=== PATIENT | female | born 1935 | race Caucasian/White ===

== ENCOUNTER → 2016-08-13 | Outpatient (CLI) | payer MEDICARE, OTHER ==
--- NOTE | 2016-08-14 10:31 | RAD ---
EXAM DESCRIPTION: Knee,Right Complete CLINICAL HISTORY: 81 years, Female, KNEE PAIN COMPARISON: None TECHNIQUE: Four views of the right knee FINDINGS: Moderate joint space narrowing medially with mild subchondral sclerosis and very little osteophyte formation is present. Milder degenerative changes laterally and in the patellofemoral compartment with moderately extensive vascular calcification is noted. Slight thickening of the suprapatellar bursa or a small effusion is suspected. IMPRESSION: 1. Moderate degenerative changes medial joint compartment with joint space narrowing and sclerosis. Electronically signed by: Prabhakar Laguna MD 08/14/2016 10:30 AM CDT
--- NOTE | 2016-08-14 10:36 | RAD ---
EXAM DESCRIPTION: Pelvis CLINICAL HISTORY: 81 years Female, HIP PAIN COMPARISON: None. FINDINGS: The bony hips and pelvis are mildly osteopenic with moderate sclerosis of the symphysis pubis consistent with osteitis pubis and modest degenerative changes involving each hip. Moderate vascular calcification is present. No soft tissue masses are evident. Moderate degenerative changes in the lower lumbar spine are noted. IMPRESSION: Osteopenia and modest degenerative changes with sclerosis of the symphysis pubis , typical of osteitis pubis Electronically signed by: Prabhakar Laguna MD 08/14/2016 10:35 AM CDT
== END ==
LOC: RAD 07:47
PROVIDERS: ATTEND Orthopaedic Surgery
DX: M25.561 Pain in right knee (principal); M25.551 Pain in right hip; M85.88 Other specified disorders of bone density and structure, other site; M12.861 Other specific arthropathies, not elsewhere classified, right knee

== ENCOUNTER → 2016-08-17 | Outpatient (CLI) | payer MEDICARE, OTHER ==
--- NOTE | 2016-08-17 14:33 | MRI ---
MRI right tib-fib without contrast INDICATION: Leg pain muscle injury no specified date of onset initial encounter TECHNIQUE: Noncontrast MR imaging right tib-fib FINDINGS: There is a prominent Baird's cyst dissecting from the knee into the calf with peripheral T1 hyperintensity indicating that hemoglobin/blood products. There is a large effusion within the knee. There is diffuse superficial edema as well. There is also a strain/low-grade partial tear of the medial head gastrocnemius. The Baird's cyst measures about 8 cm long axis. There is subchondral edema in the medial tibiofemoral compartment with joint space narrowing suggesting chondrosis and developing osteoarthrosis and possible degenerative medial meniscal tear. Dedicated MRI of the knee may be considered as well. Multiple venous varicosities and adjacent superficial edema without evidence of deep venous thrombosis. 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
== END ==
LOC: MRI 10:53
PROVIDERS: ATTEND Orthopaedic Surgery
DX: M62.1 Other rupture of muscle (nontraumatic) (principal); M71.21 Synovial cyst of popliteal space [Baker], right knee

== ENCOUNTER → 2016-10-22 | Outpatient (CLI) | payer MEDICARE, OTHER ==
--- NOTE | 2016-10-23 09:21 | RAD ---
EXAM DESCRIPTION: Knee,Left Complete CLINICAL HISTORY: 81 years,Female,KNEE PAIN COMPARISON: None FINDINGS: The left knee demonstrates no fractures, dislocations, or other acute bony abnormalities. The joint spaces mild loss of medial compartment and minimal lateral compartment and patellofemoral. With minimal osteophyte changes. The soft tissues moderate calcifications in the superficial femoral artery and popliteal arteries.. No joint effusion. IMPRESSION: Mild tricompartmental arthritic changes of the left knee. Electronically signed by: Jaspal Sood MD 10/23/2016 9:20 AM CDT
--- NOTE | 2016-10-23 09:27 | RAD ---
EXAM DESCRIPTION: Pelvis CLINICAL HISTORY: 81 years, Female, HIP PAIN COMPARISON: None. FINDINGS: Sacrum not seen well due to bowel gas. But the pelvis demonstrates no acute fractures otherwise. Hip joints demonstrate only minimal loss in the axial direction age appropriate. Scattered surgical clips in the pelvis and lower abdomen. And mild calcified arterial disease of the pelvic vessels. IMPRESSION: No acute findings in the pelvis however the sacrum cannot be evaluated well especially the left side. And there is mild age-appropriate bilateral hip osteoarthritic changes and mild calcified arterial disease. Electronically signed by: Jaspal Sood MD 10/23/2016 9:26 AM CDT
== END | disposition home or self-care (01) ==
LOC: RAD 08:09
PROVIDERS: ATTEND Orthopaedic Surgery
DX: M16.0 Bilateral primary osteoarthritis of hip (principal); M17.12 Unilateral primary osteoarthritis, left knee

== ENCOUNTER → 2017-03-04 | Outpatient (CLI) | payer MEDICARE, OTHER ==
--- NOTE | 2017-03-04 10:40 | RAD ---
EXAM DESCRIPTION: Shoulder,Right 2 or More Views CLINICAL HISTORY: PAIN IN RIGHT SHOULDER COMPARISON: None Available. TECHNIQUE: Four views of the right shoulder. FINDINGS: Advanced AC joint arthropathy with predominant superior spurring is present with normal alignment. Chest wall is intact. No rib or scapular abnormality is noted. Subcortical small cysts adjacent to the insertion of the rotator cuff consistent with rotator cuff disease and degenerative arthropathy in the lateral humeral head is noted. No bony destructive changes seen. IMPRESSION: 1. Modest degenerative changes particularly involving the AC joint and the region of the greater tuberosity of the right humerus Electronically signed by: Prabhakar Laguna MD 03/04/2017 10:39 AM [facility]
== END | disposition home or self-care (01) ==
LOC: RAD 07:58
PROVIDERS: ATTEND Orthopaedic Surgery
DX: M25.511 Pain in right shoulder (principal)

== ENCOUNTER 2017-04-21 11:31 | Day surgery (SDC) | payer MEDICARE, OTHER ==
[2017-04-21 12:47] VITALS: BP 153/78; TEMP 98.9; O2SAT 92
--- NOTE | 2017-04-21 13:02 | RAD ---
EXAM DESCRIPTION: Chest,1 View CLINICAL HISTORY: post thoracentesis. 2.5 L removed. Lung cancer. COMPARISON: Ultrasound Guidance to prepare for thoracentesis on this visit. TECHNIQUE: AP portable taken at 1247 hours, upright position. FINDINGS: Minimal right pleural effusion. Minimal thickening of the horizontal fissure. Atelectasis right mid lung field and lung base. No pneumothorax right. No infiltrate or pleural effusion on the left. Heart not enlarged. Pulmonary vascularity noncongested. Atherosclerotic changes in the aorta. IMPRESSION: Minimal right effusion status post thoracentesis. Reexpansion atelectasis. No pneumothorax. CRITICAL COMMUNICATION: The critical value was discussed directly in person with Dr. Jose De Jesus Dow at approximately 1250 hours, on April 21, 2017. Electronically signed by: Torrey Nathan MD 04/21/2017 1:01 PM [employer]
--- NOTE | 2017-04-21 13:07 | OP ---
DATE OF PROCEDURE: 04/21/17 PREOPERATIVE DIAGNOSIS: 1. Right pleural effusion secondary to metastatic small cell carcinoma. POSTOPERATIVE DIAGNOSIS: 1. Right pleural effusion secondary to metastatic small cell carcinoma. PROCEDURE: 1. Thoracentesis. SURGEON: Jose De Jesus Dow MD. CARBURIZING FURNACE OPERATOR: None. ANESTHESIA: Local infiltration of 1% lidocaine. INDICATION: The patient is an 81-year-old female with shortness of breath secondary to a pleural effusion on the right. She was brought to the outpatient department today for a therapeutic thoracentesis. FINDINGS: Ultrasound revealed the fluid collection approximately 1.2 cm from the skin. We removed approximately 2300 mL of blood-tinged, clear fluid. PROCEDURE: The patient was sat on the side of the bed with her arms extended over a pillow and table. The right back was inspected with ultrasound and an area selected as noted with fluid 1.2 cm from the skin. It was marked. The chest was then prepped and draped in the usual manner. Local infiltration of anesthesia was obtained. A 22-gauge needle was introduced over the rib and fluid was easily aspirated. A stab wound was made with an 11 blade and then the thoracentesis needle was introduced. Fluid was obtained, the catheter was advanced and the needle was removed. It was connected to the three-way stopcock and 60 mL of the maria l, blood-tinged fluid was obtained easily. It was then connected to a suction bottle and then a second suction bottle with a total of 2300 mL of fluid obtained. The patient did cough and have some discomfort during the procedure, but as soon as the catheter was removed, her symptoms resolved. Pressure was held and the needle was massaged in the usual manner. Hemostasis was noted to be adequate. A band-aid was applied and a stat portable chest x-ray was ordered. The patient tolerated the procedure well. #[id number] [facility]
--- NOTE | 2017-04-21 13:07 | US ---
EXAM DESCRIPTION: Chest: Ultrasound CLINICAL HISTORY: metastatic small cell lung ca.. Right pleural effusion. COMPARISON: Post thoracentesis portable chest x-ray to follow. TECHNIQUE: Patient supine on scanning table. Torrey written on posterior chest wall skin with permanent marker, for future placement of thoracentesis catheter, based on ultrasound scan, at the right posterior chest wall. FINDINGS: Large right pleural effusion seen by scanning posteriorly through the chest wall. Atelectasis in the right lower lobe of the lung. IMPRESSION: Large right pleural effusion. Overlying posterior right chest wall skin marked for thoracentesis to be performed later. Electronically signed by: Torrey Nathan MD 04/21/2017 1:05 PM [employer]
== END 2017-04-21 13:00 | disposition home or self-care (01) ==
LOC: TXRM 11:31 → EDSTATUS 12:30 → TXRM 13:00
PROVIDERS: ATTEND Surgery
DX: C34.90 Malignant neoplasm of unspecified part of unspecified bronchus or lung (principal); J90 Pleural effusion, not elsewhere classified; I10 Essential (primary) hypertension; E78.5 Hyperlipidemia, unspecified; I25.10 Atherosclerotic heart disease of native coronary artery without angina pectoris; Z91.041 Radiographic dye allergy status; Z85.3 Personal history of malignant neoplasm of breast; Z87.891 Personal history of nicotine dependence; Z79.02 Long term (current) use of antithrombotics/antiplatelets; Z79.899 Other long term (current) drug therapy